=== PATIENT | male | born 1955 | race African-American/Black ===

== ENCOUNTER 2022-06-21 16:24 | Emergency (ER) | payer OTHER ==
[~2022-06-21] VITALS: Ht 172.7 cm; Wt 77.0 kg
[2022-06-21 16:31] VITALS: BP 116/68
== END 2022-06-21 17:30 | disposition left against medical advice (07) ==
LOC: ER 16:45
DX: R55 Syncope and collapse (principal); R07.89 Other chest pain; Z53.21 Procedure and treatment not carried out due to patient leaving prior to being seen by health care provider
CPT/HCPCS: 93005; 99283

== ENCOUNTER 2022-06-21 18:05 | Emergency (ER) | payer OTHER ==
[~2022-06-21] VITALS: Ht 172.7 cm; Wt 73.0 kg
[2022-06-21 18:21] VITALS: BP 115/68
[2022-06-21] MEDS ORDERED: ONDANSETRON HCL 4MG/2ML INJ IV STA (18:21)
[2022-06-21] MEDS ORDERED: MAGNESIUM/ALUMINUM HYDROXIDE/SIMETHICONE 30ML UDC PO STA (18:21)
[2022-06-21] MEDS ORDERED: VISCOUS LIDOCAINE 2% 15 ML UDC PO STA (18:21)
[2022-06-21] MEDS ORDERED: SODIUM CHLORIDE 0.9% 1,000 ML IV ONE (18:30)
== END 2022-06-21 21:00 | disposition left against medical advice (07) ==
LOC: ER 18:05
DX: R07.89 Other chest pain (principal); R11.2 Nausea with vomiting, unspecified; V49.49XA Driver injured in collision with other motor vehicles in traffic accident, initial encounter; Y93.89 Activity, other specified; Y92.89 Other specified places as the place of occurrence of the external cause; Y99.8 Other external cause status
CPT/HCPCS: 99281; J7030